=== PATIENT | male | born 1950 | race Caucasian/White ===

== ENCOUNTER 2021-10-10 15:48 | Emergency (ER) | payer OTHER, BC ==
[~2021-10-10] VITALS: Ht 193 cm; Wt 88.9 kg
[2021-10-10 15:48] VITALS: BP_SYST 156
--- NOTE | 2021-10-10 15:48 | NUR ---
BROUGHT IMMEDIATELY BACK TO BED #6 AND TRIAGED. REPORT GIVEN TO KALYANI
--- NOTE | 2021-10-10 15:50 | NUR ---
PER FAMILY, PT FEELING FATIGUED, IRRITABLE, JUST "OFF". PT DENIES CHEST PAIN OR DIZZINESS.
--- NOTE | 2021-10-10 15:52 | NUR ---
MD SING AT BEDSIDE FOR ASSESS.
--- NOTE | 2021-10-10 16:00 | NUR ---
EKG SENT TO DR. SMILEY
[2021-10-10 16:42] LABS: BASOPHILS % (AUTO) 0.5 % (0.0-2.0); EOSINOPHILS # (AUTO) 0.1 K/uL (0.0-0.4); EOSINOPHILS % (AUTO) 1.5 % (0.0-4.0); HEMATOCRIT 36.2 % (36-54); HEMOGLOBIN 12.1 g/dL (14.0-18.0); LYMPHOCYTES # (AUTO) 0.9 K/uL (1.0-5.5); LYMPHOCYTES % (AUTO) 14.6 % (20.5-51.5); MEAN CORPUSCULAR HEMOGLOBIN 30 pg (27-31); MEAN CORPUSCULAR HGB CONC 33 % (32-36); MEAN CORPUSCULAR VOLUME 90 fL (79.0-98.0); MONOCYTES # (AUTO) 0.2 K/uL (0.0-1.0); MONOCYTES % (AUTO) 3.8 % (1.7-9.3); NEUTROPHILS % (AUTO) 79.6 % (40.0-70.0); PLATELET COUNT (AUTO) 241 K/uL (130-430); RED BLOOD CELL COUNT(AUTO) 4.04 MIL/uL (4.2-6.2); RED CELL DISTRIBUTION WIDTH 14.4 % (9.0-15.0); WHITE BLOOD COUNT (AUTO) 6.3 K/uL (4.8-10.8)
[2021-10-10 16:55] LABS: ANION GAP 7 (5-15); CALCIUM 9.5 mg/dL (8.4-11.0); CHLORIDE 102 mmol/L (98-107); CREATININE 1.24 mg/dL (0.55-1.30); GLUCOSE 114 mg/dL (70-99); POTASSIUM 3.8 mmol/L (3.5-5.1); SODIUM SERUM 138 mmol/L (136-145); UREA NITROGEN, BLOOD 30 mg/dL (8-21)
[2021-10-10 17:12] LABS: ALANINE AMINOTRANSFERASE 36 U/L (12-78); ALBUMIN 3.6 g/dL (3.4-4.8); ASPARTATE AMINOTRANSFERASE 22 U/L (10-37); TOTAL BILIRUBIN 0.3 mg/dL (0.0-1.0)
[2021-10-10 17:15] LABS: GFR AFRICAN AMERICAN 74 mL/min (>90)
[2021-10-10 17:35] LABS: INR 1.1 (0.80-1.20); PROTHROMBIN TIME 11.2 SECS (9.5-12.5)
[2021-10-10] MEDS ORDERED: DOCU-144 PO (18:22)
[2021-10-10] MEDS ORDERED: TAMS-11 PO (18:22)
[2021-10-10] MEDS ORDERED: MYCO250C PO (18:22)
[2021-10-10] MEDS ORDERED: APIX5TAB PO (18:22)
[2021-10-10] MEDS ORDERED: HYDR-4038 PO (18:22)
[2021-10-10] MEDS ORDERED: PRED5TAB PO (18:22)
[2021-10-10] MEDS ORDERED: LOSA-419 PO (18:22)
[2021-10-10] MEDS ORDERED: AMLO5TAB92 PO (18:22)
[2021-10-10] MEDS ORDERED: ROSU40TA23 PO (18:22)
[2021-10-10] MEDS ORDERED: FAMO-132 PO (18:22)
[2021-10-10] MEDS ORDERED: TACR1CAP2 PO (18:22)
[2021-10-10] MEDS ORDERED: ESCI10TA PO (18:22)
[2021-10-10 19:11] VITALS: BP_SYST 147
--- NOTE | 2021-10-10 19:51 | NUR ---
Patient given written and verbal discharge instructions and verbalizes understanding. ER MD discussed with patient the results and treatment provided. Patient in stable condition. ID arm band removed. IV catheter removed intact and dressing applied, no active bleeding. Rx of N/A given. Patient educated on pain management and to follow up with PMD. Pain Scale . Opportunity for questions provided and answered. Medication side effect fact sheet provided.
== END 2021-10-10 19:50 | disposition home or self-care (01) ==
LOC: SED 15:48
DX: R53.1 Weakness (principal); E11.9 Type 2 diabetes mellitus without complications; I10 Essential (primary) hypertension; Z79.899 Other long term (current) drug therapy
CPT/HCPCS: 36415; 71045; 80053; 82550; 83735; 83880; 84484; 85025; 85379; 85610-TC; 85730-TC; 93005; 99285

== ENCOUNTER 2022-06-13 09:49 | Inpatient (IN) | payer OTHER, BC ==
[~2022-06-13] VITALS: Ht 193 cm; Wt 97.5 kg
[~2022-06-13 09:49] MED LIST: AMLO5TAB92 PO; APIX5TAB PO; DOCU-144 PO; ESCI10TA PO; FAMO-132 PO; HYDR-4038 PO; LOSA-419 PO; MYCO250C PO; PRED5TAB PO; ROSU40TA23 PO; TACR1CAP2 PO; TAMS-11 PO
--- NOTE | 2022-06-13 09:55 | NUR ---
Placed in room 08 . Placed on vehicle monitor technician, blood pressure machine and pulse oximeter. To gown for exam. Side rails up. Report given to SEDA HOOPER.
[2022-06-13 09:56] VITALS: BP_SYST 165
--- NOTE | 2022-06-13 10:07 | NUR ---
Pt bib MD Knowles from home. Chief complaint febrile with body aches, nausea and dry heaving. Pt has pain with non productive cough with chest pain. Pt states chest pain on inspiration
[2022-06-13 10:20] LABS: BASOPHILS % (AUTO) 0.2 % (0.0-2.0); EOSINOPHILS # (AUTO) 0.1 K/uL (0.0-0.4); EOSINOPHILS % (AUTO) 0.8 % (0.0-4.0); HEMATOCRIT 34.7 % (36-54); HEMOGLOBIN 11.6 g/dL (14.0-18.0); LYMPHOCYTES # (AUTO) 0.6 K/uL (1.0-5.5); LYMPHOCYTES % (AUTO) 7.4 % (20.5-51.5); MEAN CORPUSCULAR HEMOGLOBIN 31 pg (27-31); MEAN CORPUSCULAR HGB CONC 33 % (32-36); MEAN CORPUSCULAR VOLUME 92 fL (79.0-98.0); MONOCYTES # (AUTO) 0.8 K/uL (0.0-1.0); MONOCYTES % (AUTO) 9.7 % (1.7-9.3); NEUTROPHILS # (AUTO) 6.9 K/uL (1.8-7.7); NEUTROPHILS % (AUTO) 81.9 % (40.0-70.0); PLATELET COUNT (AUTO) 321 K/uL (130-430); RED BLOOD CELL COUNT(AUTO) 3.78 MIL/uL (4.2-6.2); RED CELL DISTRIBUTION WIDTH 14.4 % (9.0-15.0); WHITE BLOOD COUNT (AUTO) 8.4 K/uL (4.8-10.8)
[2022-06-13 10:40] LABS: ANION GAP 6 (5-15); CALCIUM 8.8 mg/dL (8.4-11.0); CHLORIDE 99 mmol/L (98-107); CREATININE 1.28 mg/dL (0.55-1.30); GLUCOSE 141 mg/dL (70-99); UREA NITROGEN, BLOOD 19 mg/dL (8-21)
[2022-06-13 10:43] LABS: GFR AFRICAN AMERICAN 71 mL/min (>90)
[2022-06-13 10:46] LABS: ALANINE AMINOTRANSFERASE 141 U/L (12-78); ALBUMIN 2.9 g/dL (3.4-4.8); AMYLASE 31 U/L (0-100); ASPARTATE AMINOTRANSFERASE 57 U/L (10-37); C-REACTIVE PROTEIN QUANT 20.1 mg/dL (0-0.5); LIPASE 52 U/L (73-393); TOTAL BILIRUBIN 0.7 mg/dL (0.0-1.0)
--- NOTE | 2022-06-13 10:51 | NUR ---
COVID AND FLU SWABBED AND SENT OT LAB
--- NOTE | 2022-06-13 11:05 | NUR ---
[facility]
[2022-06-13] MEDS ORDERED: ACETAMINOPHEN 500 MG TABLET ONE (11:30)
[2022-06-13] MEDS ORDERED: ACETAMINOPHEN 500 MG TABLET PO ONE (11:45)
--- NOTE | 2022-06-13 12:30 | NUR ---
Medicated per MD orders. IVF infusing with no s/s of infiltration at this time. Will cont to monitor
[2022-06-13] MEDS ORDERED: NACL 0.9% 1,000 ML IV ONE (13:00)
[2022-06-13] MEDS ORDERED: IPRATROPIUM/ALBUTEROL SULFATE 3 ML AMPUL.NEB (DUONEB) INH ONE (13:00)
--- NOTE | 2022-06-13 13:42 | NUR ---
PER DR. CALZADA, PT REQEUSTED DR. WORKMAN FOR ADMISSION. DR. CALZADA CALLED DR. WORKMAN ON HIS PERSONAL CELL PHONE FOR PEER TO PEER. PER FACESHEET: MEDICARE A&B PCP NOT ON STAFF
--- NOTE | 2022-06-13 13:46 | NUR ---
Admit bed requested Patient will be admitted to care of [ Sumit ]. Admitted to [Medsurg] unit. Diagnosis [ PNEUMONIA] Inpatient (Yes or No) [YES] Observation (Yes or No) [NO] Orientation concerns or request close to nursing station (Yes or No) [NO Covid Status [NEGATIVE] On vent or bipap [N/A] Isolation requirements [N/A] Needs a sitter [N/A] From Home (Yes or if No enter name of facility) [YES] Requires Dialysis (Yes or No) [NO] Med Rec Completed (Yes of No) [YES]
[2022-06-13] MEDS ORDERED: NOR10 PO (14:33)
[2022-06-13] MEDS ORDERED: INSU100I24 SQ (14:33)
[2022-06-13] MEDS ORDERED: INSU100V SUBCUT (14:33)
[2022-06-13] MEDS ORDERED: PROP325C5 PO (14:33)
[2022-06-13] MEDS ORDERED: DOCU-144 PO (14:33)
[2022-06-13] MEDS ORDERED: MULT-1089 PO (14:33)
[2022-06-13] MEDS ORDERED: LOSA25TA3 PO (14:33)
--- NOTE | 2022-06-13 14:39 | NUR ---
Medication reconciliation completed with information provided by patient . Any prior medication reconciliation on file was reviewed and corrected.
--- NOTE | 2022-06-13 14:45 | NUR ---
Patient will be admitted to care of [facility] . Admitted to Medsurg unit. Will go to room 119C . Belongings list completed. Complete and up to date summary report printed. SBAR report to be given at bedside with opportunity for questions.
[2022-06-13 14:55] VITALS: BP_SYST 139
--- NOTE | 2022-06-13 15:00 | NUR ---
Admit notes Recieved pt from ER awake, alert. Denies any pain or discomfort. Family at bedside. Oriented to call light use. Enc to call for help as needed.
[2022-06-13 15:24] VITALS: BP_SYST 139
--- NOTE | 2022-06-13 15:24 | NUR ---
MD Sumit Arana paged for MICHELET Restrepo.
--- NOTE | 2022-06-13 15:25 | NUR ---
PAGED- Paged DR. Arana Re: Med Rec and patients wants IVF change.
[2022-06-13] MEDS: D5/0.45 NS 1,000 ML IV SCH (15:32)
--- NOTE | 2022-06-13 16:23 | NUR ---
called- Sumit Barry called and stated that he will come and do the orders. Patient made aware.
--- NOTE | 2022-06-13 16:31 | NUR ---
CONSULTATION PAGED/CALLED Reason for Consultation: PNEUMONIA Person Who was Notified: OFFICE Consulting Physician: MARISSA HOUSTON Ordering Physician: DR WORKMAN
--- NOTE | 2022-06-13 17:30 | NUR ---
Notes- Patient check his sugar and administer his own insulin.
[2022-06-13] MEDS: MICAFUNGIN SODIUM 50 MG in NS 50 ML IV SCH (18:50)
[2022-06-13 18:59] LABS: C-REACTIVE PROTEIN QUANT 19.4 mg/dL (0-0.5)
[2022-06-13 19:44] LABS: BILIRUBIN,URINE NEGATIVE (NEGATIVE); BLOOD, URINE NEGATIVE (NEGATIVE); CLARITY/URINE CLEAR (CLEAR); COLOR,URINE YELLOW (YELLOW); GLUCOSE,URINE NEGATIVE (NEGATIVE); KETONES,URINE NEGATIVE (NEGATIVE); LEUKOCYTE ESTERASE ,URINE NEGATIVE (NEGATIVE); NITRITE, URINE NEGATIVE (NEGATIVE); PROTEIN URINE 2+ (NEGATIVE); UROBILINOGEN,URINE 0.2 (0.2-1.0)
[2022-06-13] MEDS ORDERED: amLODIPine BESYLATE 10 MG TABLET PO ONE (19:45)
[2022-06-13] MEDS ORDERED: INSULIN Lispro 100 UNITS/ML, 3 ML VIAL (humaLOG) SUBCUT ONE (19:45)
[2022-06-13 20:04] VITALS: BP_SYST 139
[2022-06-13 20:05] LABS: BACTERIA,URINE FEW /HPF (None Seen); COARSE GRANULAR CASTS,URINE 0-10 /LPF (None Seen); MUCUS,URINE None Seen /LPF (None Seen); RBC,URINE 0-3 /HPF (0-3); WBC,URINE 0-3 /HPF (0-3)
[2022-06-13] MEDS ORDERED: cefTRIAXone 1 GM in D5W 50 ML IV SCH (21:00)
[2022-06-13] MEDS ORDERED: ESCITALOPRAM OXALATE 10 MG TABLET PO SCH (21:00)
[2022-06-13] MEDS ORDERED: DOCUSATE SODIUM 100 MG CAPSULE PO SCH (21:00)
[2022-06-13] MEDS ORDERED: CEFEPIME 2 GM in D5W 100 ML IV SCH (21:00)
[2022-06-13] MEDS: CEFEPIME 2 GM in D5W 100 ML IV SCH (21:07)
[2022-06-13] MEDS: mycophenolate mofetiL 250 MG CAPSULE PO SCH (21:09)
[2022-06-13] MEDS: TAMSULOSIN HCL 0.4 MG CAP PO SCH (21:10)
[2022-06-13] MEDS: LOSARTAN POTASSIUM 25 MG TABLET PO SCH (21:10)
[2022-06-13] MEDS: TACROLIMUS ANHYDROUS 1 MG CAPSULE (PROGRAF) PO SCH (21:11)
[2022-06-13] MEDS: hydrALAZINE HCL 25 MG TABLET PO SCH (21:11)
--- NOTE | 2022-06-13 22:13 | NUR ---
Paged Dr. Arana s/w [place]
--- NOTE | 2022-06-13 23:31 | NUR ---
CONSULTATION PAGED/CALLED Reason for Consultation: RENAL [place] Person Who was Notified: DAVID Consulting Physician: LISE MEJIA Humanities Department Chair Specialty: Ordering Physician: GLORIA WORKMAN
--- NOTE | 2022-06-13 23:42 | NUR ---
MD CALLED: MD called and new orders were received for accu checks and insulin. Orders noted and carried out.
[2022-06-14 00:45] VITALS: BP_SYST 132
--- NOTE | 2022-06-14 06:34 | NUR ---
CLOSING NOTES: Patient is in bed resting no s/s of distress at this time. Patient is AA&OX4 able to make needs known with call light within reach, chest rise is even & unlabored on room air. Patient is stable at this time, all current shift needs have been met and safety measures are in place as per protocol. Will differ care to AM shift nurse for continuity of care.
[2022-06-14 08:00] VITALS: BP_SYST 102
[2022-06-14] MEDS ORDERED: cefTRIAXone 1 GM in D5W 50 ML IV SCH (09:00)
[2022-06-14] MEDS: DOCUSATE SODIUM 100 MG CAPSULE PO SCH ×2 (09:00→09:19)
[2022-06-14] MEDS ORDERED: INSULIN Lispro 100 UNITS/ML, 3 ML VIAL (humaLOG) SUBCUT SCH (09:00)
[2022-06-14] MEDS: TACROLIMUS ANHYDROUS 1 MG CAPSULE (PROGRAF) PO SCH ×2 (09:18→21:33)
[2022-06-14] MEDS: CEFEPIME 2 GM in D5W 100 ML IV SCH ×2 (09:18→22:46)
[2022-06-14] MEDS: MULTIVITAMINS TAB 1 TABLET PO SCH (09:19)
[2022-06-14] MEDS: FAMOTIDINE 20 MG TABLET PO SCH (09:20)
[2022-06-14] MEDS: CITALOPRAM HYDROBROMIDE 20 MG TABLET PO SCH (09:20)
[2022-06-14] MEDS: predniSONE 5 MG TABLET PO SCH (09:20)
[2022-06-14] MEDS: mycophenolate mofetiL 250 MG CAPSULE PO SCH ×2 (09:20→21:34)
[2022-06-14] MEDS: D5/0.45 NS 1,000 ML IV SCH (09:45)
[2022-06-14] MEDS: AZITHROMYCIN 250 MG in NS 250 ML IV SCH (10:25)
[2022-06-14 11:26] VITALS: BP_SYST 164
[2022-06-14] MEDS: LOSARTAN POTASSIUM 25 MG TABLET PO SCH ×2 (12:31→21:33)
[2022-06-14] MEDS: amLODIPine BESYLATE 10 MG TABLET PO SCH (12:32)
[2022-06-14] MEDS: hydrALAZINE HCL 25 MG TABLET PO SCH ×2 (12:32→21:34)
[2022-06-14 15:27] VITALS: BP_SYST 147
[2022-06-14] MEDS ORDERED: ACETAMINOPHEN 325 MG TABLET PO PRN (16:30)
[2022-06-14] MEDS: INSULIN LISPRO SLIDING SCALE 100 UNITS/ML, 3 ML VIAL (humaLOG) SUBCUT PRN ×2 (16:44→21:38)
[2022-06-14 17:33] VITALS: BP_SYST 147
[2022-06-14] MEDS: MICAFUNGIN SODIUM 50 MG in NS 50 ML IV SCH (18:03)
--- NOTE | 2022-06-14 18:30 | NUR ---
pt A/Ox4,vss,ambulatory well by self,O2 sat 94% on room air,respirates even and unlabored,pt demonstrated use for I/S,give IV antibiotic due,no adverse reactions noted needs attended,call light & personal items within pt reach,safety maintained. continue to monitor pt.
[2022-06-14 20:30] VITALS: BP_SYST 168
--- NOTE | 2022-06-14 20:30 | NUR ---
Opening notes Pt asleep, easily awakens, VSS, afebrile. O2 sat 96% on room air. Pt has occasional, non-productive cough. IV R. FA20G clear and patent. Call light within reach. Bed low, locked, siderails up x2. To monitor.
[2022-06-14] MEDS: TAMSULOSIN HCL 0.4 MG CAP PO SCH (21:34)
[2022-06-15] VITALS: BP_SYST 159
--- NOTE | 2022-06-15 | NUR ---
Rounds Pt had a shower. VSS. No s/s distress. Call light within reach. To monitor.
[2022-06-15] MEDS: D5/0.45 NS 1,000 ML IV SCH ×2 (05:45→20:32)
--- NOTE | 2022-06-15 06:25 | NUR ---
Closing notes Pt asleep, easily awakens. No s/s distress, no c/o pain. BS checked 102. IV R. FA20G clear and patent. Call light within reach. Bed low, locked, siderails up x2. Safety maintained. To endorse to AM nurse.
[2022-06-15 08:00] VITALS: BP_SYST 131
--- NOTE | 2022-06-15 08:00 | NUR ---
OPENING NOTES PATIENT IS AOX4. AMBULATORY. NO S OF DISTRESS NOTED. BREATHING IS EVEN AND LABORED, ON ROOM AIR. PATIENT HAS COUGH. INCENTIVE SPIROMETER WITHIN REACH ON BEDSIDE TABLE. PATIENT AWARE AND UNDERSTANDS THE IMPORTANCE TO USE INCENTIVE SPIROMETER. VITAL SIGNS OBTAINED, DOCUMENTED. PATIENT DENIES SOB. DENIES PAIN. IV APPEARS TO BE PATENT. NO SS OF INFILTRATION. NOTED. PATIENT IS EATING BREAKFAST. ALL SAFETY PRECAUTIONS IN PLACE AND CALL LIGHT WITHIN REACH.
[2022-06-15] MEDS: predniSONE 5 MG TABLET PO SCH (09:38)
[2022-06-15] MEDS: TACROLIMUS ANHYDROUS 1 MG CAPSULE (PROGRAF) PO SCH ×2 (09:38→20:30)
[2022-06-15] MEDS: FAMOTIDINE 20 MG TABLET PO SCH (09:38)
[2022-06-15] MEDS: LOSARTAN POTASSIUM 25 MG TABLET PO SCH ×2 (09:39→20:38)
[2022-06-15] MEDS: MULTIVITAMINS TAB 1 TABLET PO SCH (09:39)
[2022-06-15] MEDS: hydrALAZINE HCL 25 MG TABLET PO SCH ×2 (09:39→20:37)
[2022-06-15] MEDS: amLODIPine BESYLATE 10 MG TABLET PO SCH (09:39)
[2022-06-15] MEDS: DOCUSATE SODIUM 100 MG CAPSULE PO SCH (09:40)
[2022-06-15] MEDS: CITALOPRAM HYDROBROMIDE 20 MG TABLET PO SCH (09:40)
[2022-06-15] MEDS: mycophenolate mofetiL 250 MG CAPSULE PO SCH ×2 (09:40→20:30)
[2022-06-15] MEDS: CEFEPIME 2 GM in D5W 100 ML IV SCH ×2 (10:18→20:21)
[2022-06-15] MEDS: INSULIN LISPRO SLIDING SCALE 100 UNITS/ML, 3 ML VIAL (humaLOG) SUBCUT PRN ×3 (11:30→22:50)
[2022-06-15 11:50] VITALS: BP_SYST 143
[2022-06-15] MEDS: AZITHROMYCIN 250 MG in NS 250 ML IV SCH (11:50)
--- NOTE | 2022-06-15 12:00 | NUR ---
NOTES PATIENT SITTING AT EDGE OF BED, BEDSIDE TABLE IN FRONT, EATING LUNCH. STABLE. NO CHANGE IN ASSESSMENT. SAFETY PRECAUTIONS IN PLACE AND ALL LIGHT WITHIN REACH.
--- NOTE | 2022-06-15 16:00 | NUR ---
NOTES PATIENT APPEARS TO BE SLEEPING, BREATHING IS EVEN AND NONLABORED, ON ROOM AIR. NO FACIAL GRIMACE NOTED. NO SOB NOTED. SAFETY PRECAUTIONS IN PLACE AND CALL LIGHT WITHIN REACH.
[2022-06-15] MEDS: MICAFUNGIN SODIUM 50 MG in NS 50 ML IV SCH (18:11)
[2022-06-15 18:31] VITALS: BP_SYST 162
--- NOTE | 2022-06-15 18:47 | NUR ---
Closing notes Patient is sitting at edge of the bed, eating dinner. Patient is stable. Denies pain. No SOB noted. Breathing is even and nonlabored, on room air. IV patent. IV antibiotics running. All needs met. All safety precautions in place and call light within reach.
[2022-06-15 19:35] VITALS: BP_SYST 156
[2022-06-15] MEDS: TAMSULOSIN HCL 0.4 MG CAP PO SCH (20:23)
[2022-06-15] MEDS: PROMETHAZINE-DM 6.25 MG-15 MG/5 ML UDC PO PRN (20:40)
--- NOTE | 2022-06-15 20:45 | NUR ---
NEW IV PLACEMENT PATIENT'S IV IS NOTED TO BE INFILTRATED, OLD IV IS REMOVED, TIP INTACT, NO SIGNS OF ACTIVE BLEED. NEW IV IS PLACED ON LEFT FOREARM #22 GAUGE. 10 MLS NS FLUSHED WITH NO RESISTANCE.
[2022-06-16] VITALS (7 sets, daily range): BP systolic 152–165
--- NOTE | 2022-06-16 06:45 | NUR ---
CLOSING NOTE PATIENT VERBALIZES HE FEELS "MUCH BETTER" HE DID NOT HAVE ANY COUGHS OR CONGESTION NOTED DURING THE NIGHT. HE REMAINS STABLE.
--- NOTE | 2022-06-16 08:00 | NUR ---
INITIAL NOTE: Received Patient lying in bed, awake alert, oriented x 4. Patient able to express needs verbally. States she currently has no concerns. No c/o pain. No SOB. Breathing even & unlabored. Lungs clear, all lobes. No edema noted. Surgical dressing to left leg intact. 20 gauge IV to left AC intact with no signs of infiltration. D5 1/2 NS running. Vitals WNL. Bed in low, locked position. Alarm active. Call light & personal items within reach. Addendum: 06/16/22 at 1700 by Barbara Galo LVN CHARTED IN INCORRECT FILE
--- NOTE | 2022-06-16 08:00 | NUR ---
INITIAL NOTE: Received Patient lying in bed, eyes closed appears to be sleeping. Once awakened, Patient is oriented x 4 with a pleasant demeanor. Patient verbally makes needs known. States he currently has no concerns. Patient denies pain. States chest congestion has stopped. Breathing even & unlabored. Lungs clear, all lobes. No SOB. No edema noted. 20 gauge IV to right AC intact with no signs of infiltration, flushes well. Vitals WNL. Bed in low, locked position. Call light & personal items within reach.
[2022-06-16] MEDS: mycophenolate mofetiL 250 MG CAPSULE PO SCH ×2 (10:16→20:56)
[2022-06-16] MEDS: amLODIPine BESYLATE 10 MG TABLET PO SCH (10:17)
[2022-06-16] MEDS: FAMOTIDINE 20 MG TABLET PO SCH (10:17)
[2022-06-16] MEDS: MULTIVITAMINS TAB 1 TABLET PO SCH (10:17)
[2022-06-16] MEDS: CITALOPRAM HYDROBROMIDE 20 MG TABLET PO SCH (10:18)
[2022-06-16] MEDS: DOCUSATE SODIUM 100 MG CAPSULE PO SCH (10:18)
[2022-06-16] MEDS: CEFEPIME 2 GM in D5W 100 ML IV SCH ×2 (10:18→20:55)
[2022-06-16] MEDS: hydrALAZINE HCL 25 MG TABLET PO SCH ×2 (10:18→20:56)
[2022-06-16] MEDS: TACROLIMUS ANHYDROUS 1 MG CAPSULE (PROGRAF) PO SCH ×2 (10:18→20:58)
[2022-06-16] MEDS: predniSONE 5 MG TABLET PO SCH (10:18)
[2022-06-16] MEDS: PROMETHAZINE-DM 6.25 MG-15 MG/5 ML UDC PO PRN (10:19)
[2022-06-16] MEDS: LOSARTAN POTASSIUM 25 MG TABLET PO SCH ×2 (10:19→20:57)
[2022-06-16] MEDS: INSULIN GLARGINE 100 UNITS/ML, 10 ML VIAL SUBCUT SCH (10:29)
[2022-06-16] MEDS: AZITHROMYCIN 250 MG in NS 250 ML IV SCH (10:59)
--- NOTE | 2022-06-16 11:30 | NUR ---
Patient called using call light stating that her IV is "leaking". Upon visualization, IV showed signs of obvious infiltration including redness & edema to site, Left AC. IV fluid infusion was immediately stopped & IV catheter was removed. Patient was offered a compress but refused. Attempted new IV in 2 locations but unsuccessful. Addendum: 06/16/22 at 1418 by Barbara Galo LVN CHARTED IN WRONG LISTING
[2022-06-16] MEDS: INSULIN LISPRO SLIDING SCALE 100 UNITS/ML, 3 ML VIAL (humaLOG) SUBCUT PRN ×3 (12:28→21:31)
--- NOTE | 2022-06-16 13:45 | NUR ---
After several unsuccessful attempts, a new IV was started for patient. 22 gauge was placed to the left wrist. Flushes well with good blood return. IV fluid D5 1/2 NS running at 100 mL/hour was hung. No c/o pain to the site. Dressing to infiltrated site at left AC was removed. Patient was previously offered a compress and refused. Redness, pain and edema has decreased. Addendum: 06/16/22 at 1419 by Barbara Galo LVN CHARTED IN WRONG LISTING
[2022-06-16] MEDS ORDERED: VANCOMYCIN HCL 1 GM/NS PREMIX 250 ML IV ONE (15:15)
[2022-06-16 16:17] LABS: BASOPHILS % (AUTO) 0.3 % (0.0-2.0); EOSINOPHILS # (AUTO) 0.1 K/uL (0.0-0.4); EOSINOPHILS % (AUTO) 1.5 % (0.0-4.0); HEMATOCRIT 32.9 % (36-54); HEMOGLOBIN 11.2 g/dL (14.0-18.0); LYMPHOCYTES # (AUTO) 0.7 K/uL (1.0-5.5); LYMPHOCYTES % (AUTO) 11.6 % (20.5-51.5); MEAN CORPUSCULAR HEMOGLOBIN 31 pg (27-31); MEAN CORPUSCULAR HGB CONC 34 % (32-36); MEAN CORPUSCULAR VOLUME 92 fL (79.0-98.0); MONOCYTES # (AUTO) 0.6 K/uL (0.0-1.0); MONOCYTES % (AUTO) 9.7 % (1.7-9.3); NEUTROPHILS # (AUTO) 4.7 K/uL (1.8-7.7); NEUTROPHILS % (AUTO) 76.9 % (40.0-70.0); PLATELET COUNT (AUTO) 379 K/uL (130-430); RED BLOOD CELL COUNT(AUTO) 3.59 MIL/uL (4.2-6.2); RED CELL DISTRIBUTION WIDTH 14.1 % (9.0-15.0); WHITE BLOOD COUNT (AUTO) 6.1 K/uL (4.8-10.8)
[2022-06-16 16:20] LABS: ERYTHROCYTE SEDIMENTATION RATE 107 MM/HR (0-15)
--- NOTE | 2022-06-16 18:30 | NUR ---
CLOSING NOTE: Patient resting in bed in position of most comfort. Denies pain. Kept clean and dry. Bed in low, locked position. Call light and personal items within reach.
--- NOTE | 2022-06-16 19:15 | NUR ---
change of shift.pt.presents quiescent affect;calm,resting.no c/o pain,nausea.pt.capable to ambulate unassisted. o2-sat%=98@room air.general status stable;respiratory status stable;unlabored.call light/telephone w/in access of the pt.
--- NOTE | 2022-06-16 20:30 | NUR ---
blood glucose assessed value:294mg/dl.
[2022-06-16] MEDS: MICAFUNGIN SODIUM 50 MG in NS 50 ML IV SCH (20:55)
[2022-06-16] MEDS: TAMSULOSIN HCL 0.4 MG CAP PO SCH (20:57)
--- NOTE | 2022-06-16 21:00 | NUR ---
2100p medications administered.pt.capable to ingest the po medications w/out difficulty.insulin;humalo-u administered per sliding scale.no c/o pain,nausea,no requests posited@this hour.call light/telephone placed w/in access of the pt.
[2022-06-16] MEDS: D5/0.45 NS 1,000 ML IV SCH (21:45)
--- NOTE | 2022-06-16 22:00 | NUR ---
pt.assessed.no c/o pain,nausea.no requests posited@this hour.02-sat%=98%.iv access intact;patent.pt.capable to reposition self.call light/telephone w/in access of the pt.
--- NOTE | 2022-06-16 22:00 | NUR ---
pt.assessed.pt.quiescent.02-fri%=98%.iv access intact;patent.no c/o pain,nausea.no requests posited@this hour.pt.capable to reposition self.call light/telephone w/in access of the pt.
[2022-06-17] VITALS: BP_SYST 140
--- NOTE | 2022-06-17 | NUR ---
pt.assessed.v/s assessed values wnl.o2-sat%=98%.no c/o pain,nausea.no requests posited@this hour.iv access intact;patent.pt.capable to reposition self.call light/telephone w/in access of the pt.
--- NOTE | 2022-06-17 02:00 | NUR ---
pt.assessed.pt.quiescent;somnolent.per flacc pain mgx pt.absent facial grimaces/body posturing.pt.capable to reposition self. iv access intact;patent.call light/telephone w/in access of the pt.
--- NOTE | 2022-06-17 04:00 | NUR ---
pt.assessed.pt.quiescent;somnolent.per flacc pain mgx pt.absent facial grimaces/body posturing.pt.capable to reposition self. iv access intact;patent.call light/telephone w/in access of the pt.
[2022-06-17 06:05] LABS: CALCIUM 8.7 mg/dL (8.4-11.0); CREATININE 1.27 mg/dL (0.55-1.30)
--- NOTE | 2022-06-17 06:13 | NUR ---
pt.assessed.pt.quiescent.no c/o pain,nausea.blood glucose assessed value;128mg/dl.no requests posited@this hour. pt.capable to reposition self.call light/telephone placed w/in access of the pt.
[2022-06-17 07:37] LABS: EOSINOPHILS # (AUTO) 0.2 K/uL (0.0-0.4); EOSINOPHILS % (AUTO) 2.4 % (0.0-4.0); HEMOGLOBIN 11.2 g/dL (14.0-18.0); LYMPHOCYTES # (AUTO) 1.4 K/uL (1.0-5.5); LYMPHOCYTES % (AUTO) 22.5 % (20.5-51.5); MEAN CORPUSCULAR HEMOGLOBIN 30 pg (27-31); MEAN CORPUSCULAR HGB CONC 33 % (32-36); MEAN CORPUSCULAR VOLUME 91 fL (79.0-98.0); MONOCYTES # (AUTO) 0.5 K/uL (0.0-1.0); MONOCYTES % (AUTO) 7.8 % (1.7-9.3); PLATELET COUNT (AUTO) 405 K/uL (130-430); RED BLOOD CELL COUNT(AUTO) 3.73 MIL/uL (4.2-6.2); RED CELL DISTRIBUTION WIDTH 14.5 % (9.0-15.0); WHITE BLOOD COUNT (AUTO) 6.4 K/uL (4.8-10.8)
[2022-06-17 08:00] VITALS: BP_SYST 136
[2022-06-17 08:00] LABS: BASOPHILS % (AUTO) 0.2 % (0.0-2.0); NEUTROPHILS # (AUTO) 4.3 K/uL (1.8-7.7); NEUTROPHILS % (AUTO) 67.1 % (40.0-70.0)
--- NOTE | 2022-06-17 08:00 | NUR ---
INITIAL NOTE: Received Patient lying in bed asleep. When awakened, oriented x 4. Patient denies pain at this time. Breathing even & unlabored. No c/o SOB. Vitals WNL. Bed is in low, locked position. Call light & personal items within reach.
[2022-06-17] MEDS: AZITHROMYCIN 250 MG in NS 250 ML IV SCH (09:00)
[2022-06-17] MEDS: MULTIVITAMINS TAB 1 TABLET PO SCH (09:07)
[2022-06-17] MEDS: hydrALAZINE HCL 25 MG TABLET PO SCH ×2 (09:07→21:42)
[2022-06-17] MEDS: DOCUSATE SODIUM 100 MG CAPSULE PO SCH (09:07)
[2022-06-17] MEDS: CITALOPRAM HYDROBROMIDE 20 MG TABLET PO SCH (09:07)
[2022-06-17] MEDS: mycophenolate mofetiL 250 MG CAPSULE PO SCH ×2 (09:07→21:45)
[2022-06-17] MEDS: LOSARTAN POTASSIUM 25 MG TABLET PO SCH ×2 (09:07→21:44)
[2022-06-17] MEDS: FAMOTIDINE 20 MG TABLET PO SCH (09:08)
[2022-06-17] MEDS: predniSONE 5 MG TABLET PO SCH (09:08)
[2022-06-17] MEDS: amLODIPine BESYLATE 10 MG TABLET PO SCH (09:08)
[2022-06-17] MEDS: TACROLIMUS ANHYDROUS 1 MG CAPSULE (PROGRAF) PO SCH ×2 (09:08→21:45)
[2022-06-17] MEDS: INSULIN GLARGINE 100 UNITS/ML, 10 ML VIAL SUBCUT SCH (09:19)
[2022-06-17] MEDS: CEFEPIME 2 GM in D5W 100 ML IV SCH ×2 (10:32→21:40)
--- NOTE | 2022-06-17 10:45 | NUR ---
new iv inserted right lower FA 20g first attempt. positive blood return, flushes well. tolerated well. left FA iv removed due to phlebitis; pink, tender, swollen. pleasant, cooperative, no distress. call light in reach. SEDA Jimenez aware. daughter visited bedside.
[2022-06-17 11:36] VITALS: BP_SYST 129
[2022-06-17] MEDS: INSULIN LISPRO SLIDING SCALE 100 UNITS/ML, 3 ML VIAL (humaLOG) SUBCUT PRN ×3 (12:14→21:57)
[2022-06-17 12:26] VITALS: BP_SYST 129
[2022-06-17 15:55] VITALS: BP_SYST 163
[2022-06-17] MEDS: D5/0.45 NS 1,000 ML IV SCH (17:45)
[2022-06-17] MEDS: MICAFUNGIN SODIUM 50 MG in NS 50 ML IV SCH (17:52)
[2022-06-17 18:06] LABS: MYCOPLASMA PNEUMONIAE IgM <770 U/mL (0-769)
--- NOTE | 2022-06-17 18:30 | NUR ---
CLOSING NOTE: Patient currently resting in bed, in position of comfort. No signs of acute distress noted. Denies pain. No SOB. No signs of acute distress noted. Bed in low, locked position. Call light and personal items within reach.
[2022-06-17 20:00] VITALS: BP_SYST 140
[2022-06-17] MEDS: TAMSULOSIN HCL 0.4 MG CAP PO SCH (21:40)
[2022-06-18 00:28] VITALS: BP_SYST 174
[2022-06-18] MEDS ORDERED: hydrALAZINE HCL 25 MG TABLET PO PRN (00:30)
--- NOTE | 2022-06-18 04:09 | NUR ---
SHIFT NOTE: Patient was received during change of shift. Patient is AA&Ox4 able to make needs known, chest rise is even and unlabored on RA. Patient is pleasant denies any pain or distress at the time and has call light within reach. Safety measures are in place as per protocol. Care was resumed at this time. 2200: Patient has been assessed as indicated and has received all evening shift medications including PRN insulin per sliding scale. Patient denies pain is watching television at this time. Will continue to monitor. 0000: Patient BP was noted to be elevated at 175/81 or above. BP was retaken multiple times and SBP was noted >[address] Arana was paged. 0100: Spoke with Dr. Arana about patient elevated BP and received a new order for a PRN medication for SBP >160. Orders noted and carried out. 0300: Patient is in bed resting no s/s of distress noted at this time and call light is within reach. BP was assessed for follow up and noted to be 160/75. Will continue to monitor.
[2022-06-18 06:18] LABS: BASOPHILS # (AUTO) 0.1 K/uL (0.0-0.2); BASOPHILS % (AUTO) 0.8 % (0.0-2.0); EOSINOPHILS # (AUTO) 0.2 K/uL (0.0-0.4); EOSINOPHILS % (AUTO) 3.8 % (0.0-4.0); HEMATOCRIT 33.6 % (36-54); HEMOGLOBIN 11.4 g/dL (14.0-18.0); LYMPHOCYTES # (AUTO) 1.3 K/uL (1.0-5.5); LYMPHOCYTES % (AUTO) 20.3 % (20.5-51.5); MEAN CORPUSCULAR HEMOGLOBIN 31 pg (27-31); MEAN CORPUSCULAR HGB CONC 34 % (32-36); MEAN CORPUSCULAR VOLUME 91 fL (79.0-98.0); MONOCYTES # (AUTO) 0.5 K/uL (0.0-1.0); MONOCYTES % (AUTO) 7.8 % (1.7-9.3); NEUTROPHILS # (AUTO) 4.3 K/uL (1.8-7.7); NEUTROPHILS % (AUTO) 67.3 % (40.0-70.0); PLATELET COUNT (AUTO) 412 K/uL (130-430); RED BLOOD CELL COUNT(AUTO) 3.71 MIL/uL (4.2-6.2); WHITE BLOOD COUNT (AUTO) 6.3 K/uL (4.8-10.8)
[2022-06-18 06:43] LABS: CALCIUM 8.8 mg/dL (8.4-11.0); CREATININE 1.16 mg/dL (0.55-1.30)
[2022-06-18 07:59] LABS: ERYTHROCYTE SEDIMENTATION RATE 73 MM/HR (0-15)
[2022-06-18 08:30] VITALS: BP_SYST 158
[2022-06-18] MEDS: predniSONE 5 MG TABLET PO SCH (09:56)
[2022-06-18] MEDS: CITALOPRAM HYDROBROMIDE 20 MG TABLET PO SCH (09:56)
[2022-06-18] MEDS: FAMOTIDINE 20 MG TABLET PO SCH (09:56)
[2022-06-18] MEDS: DOCUSATE SODIUM 100 MG CAPSULE PO SCH (09:56)
[2022-06-18] MEDS: MULTIVITAMINS TAB 1 TABLET PO SCH (09:56)
[2022-06-18] MEDS: amLODIPine BESYLATE 10 MG TABLET PO SCH (09:57)
[2022-06-18] MEDS: TACROLIMUS ANHYDROUS 1 MG CAPSULE (PROGRAF) PO SCH (09:58)
[2022-06-18] MEDS: hydrALAZINE HCL 25 MG TABLET PO SCH (09:58)
[2022-06-18] MEDS: CEFEPIME 2 GM in D5W 100 ML IV SCH (10:05)
[2022-06-18] MEDS: AZITHROMYCIN 250 MG in NS 250 ML IV SCH (10:06)
[2022-06-18] MEDS: LOSARTAN POTASSIUM 25 MG TABLET PO SCH (10:07)
[2022-06-18] MEDS: INSULIN GLARGINE 100 UNITS/ML, 10 ML VIAL SUBCUT SCH (10:57)
[2022-06-18] MEDS: mycophenolate mofetiL 250 MG CAPSULE PO SCH (11:27)
[2022-06-18 11:33] VITALS: BP_SYST 153
[2022-06-18] MEDS: INSULIN LISPRO SLIDING SCALE 100 UNITS/ML, 3 ML VIAL (humaLOG) SUBCUT PRN (11:55)
[2022-06-18 15:36] VITALS: BP_SYST 133
[2022-06-18 16:09] VITALS: BP_SYST 158
[2022-06-18 16:29] LABS: BILIRUBIN,URINE NEGATIVE (NEGATIVE); BLOOD, URINE NEGATIVE (NEGATIVE); CLARITY/URINE CLEAR (CLEAR); COLOR,URINE YELLOW (YELLOW); GLUCOSE,URINE NEGATIVE (NEGATIVE); KETONES,URINE NEGATIVE (NEGATIVE); LEUKOCYTE ESTERASE ,URINE NEGATIVE (NEGATIVE); NITRITE, URINE NEGATIVE (NEGATIVE); PH,URINE 6.5 (5.0-8.0); PROTEIN URINE 2+ (NEGATIVE); UROBILINOGEN,URINE 0.2 (0.2-1.0)
[2022-06-18 17:02] LABS: BACTERIA,URINE FEW /HPF (None Seen); COARSE GRANULAR CASTS,URINE 0-10 /LPF (None Seen); FINE GRANULAR CASTS,URINE 0-10 /LPF (None Seen); MUCUS,URINE None Seen /LPF (None Seen); RBC,URINE 0-3 /HPF (0-3); WBC,URINE 0-3 /HPF (0-3)
[2022-06-18] MEDS ORDERED: hydrALAZINE HCL 25 MG TABLET PO SCH (21:00)
[2022-06-19] MEDS ORDERED: amLODIPine BESYLATE 5 MG TABLET PO SCH (09:00)
--- NOTE | 2022-07-02 09:59 | NUR ---
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 Dr. Knowles who sounded upbeat. stated he completed his oral antibiotics, has not SOB, no fever. stated he is just trying to get his strength and energy back. Dr Daviesstated he had an apt. with his PCP, Dr. Gaston at [facility] and has an apt. with Dr. Rooney on Friday. did not have any questions or concerns.
== END 2022-06-18 17:35 | disposition home or self-care (01) | DRG 194 ==
LOC: SED 09:49 → SMU 13:42
PROVIDERS: ADMIT Specialist; ATTEND Specialist
DX: J18.9 Pneumonia, unspecified organism (principal); D84.9 Immunodeficiency, unspecified; Z94.0 Kidney transplant status; R78.81 Bacteremia; E44.1 Mild protein-calorie malnutrition; I10 Essential (primary) hypertension; E11.9 Type 2 diabetes mellitus without complications; Z20.822 Contact with and (suspected) exposure to COVID-19; B95.8 Unspecified staphylococcus as the cause of diseases classified elsewhere; E78.5 Hyperlipidemia, unspecified; F32.A Depression, unspecified; Z68.26 Body mass index [BMI] 26.0-26.9, adult
CPT/HCPCS: 36415; 71045; 76376; 76770; 80048; 80053; 81000; 82150; 83037; 83690; 83880; 84484; 85025; 85651-TC; 86140; 86738; 87040; 87070-TC; 87081; 87186-TC; 87205-TC; 87305; 87497; 93005; 94010; 94640; 94760; 96365; 96367; 99285; J0456; J0692; J0696; J1815; J1956; J3370; J7030; J7050; J7060; J7507; J7512; J7517

== ENCOUNTER 2022-10-10 14:03 | Inpatient (IN) | payer OTHER, BC ==
[~2022-10-10] VITALS: Ht 190.5 cm; Wt 95.3 kg
[~2022-10-10 14:03] MED LIST changes: -AMLO5TAB92 PO; +INSU100I24 SQ; +INSU100V SUBCUT; +LOSA-412 PO; -LOSA-419 PO; +MULT-1089 PO; +NOR10 PO; +PROP325C5 PO
[2022-10-10 14:11] VITALS: BP_SYST 160; PULSE 65; RESP 19; TEMP 98; O2SAT 92
[2022-10-10] MEDS ORDERED: NACL 0.9% 1,000 ML IV ONE (14:45)
[2022-10-10 15:21] LABS: BASOPHILS % (AUTO) 0.3 % (0.0-2.0); EOSINOPHILS # (AUTO) 0.1 K/uL (0.0-0.4); EOSINOPHILS % (AUTO) 1.1 % (0.0-4.0); HEMATOCRIT 38.8 % (36-54); HEMOGLOBIN 12.5 g/dL (14.0-18.0); LYMPHOCYTES # (AUTO) 0.5 K/uL (1.0-5.5); LYMPHOCYTES % (AUTO) 7.2 % (20.5-51.5); MEAN CORPUSCULAR HEMOGLOBIN 30 pg (27-31); MEAN CORPUSCULAR HGB CONC 32 % (32-36); MEAN CORPUSCULAR VOLUME 93 fL (79.0-98.0); MONOCYTES # (AUTO) 0.6 K/uL (0.0-1.0); MONOCYTES % (AUTO) 7.9 % (1.7-9.3); NEUTROPHILS # (AUTO) 5.9 K/uL (1.8-7.7); NEUTROPHILS % (AUTO) 83.5 % (40.0-70.0); PLATELET COUNT (AUTO) 270 K/uL (130-430); RED BLOOD CELL COUNT(AUTO) 4.17 MIL/uL (4.2-6.2); RED CELL DISTRIBUTION WIDTH 14.6 % (9.0-15.0); WHITE BLOOD COUNT (AUTO) 7.1 K/uL (4.8-10.8)
[2022-10-10 15:28] LABS: ERYTHROCYTE SEDIMENTATION RATE 65 MM/HR (0-15)
[2022-10-10 15:34] LABS: ANION GAP 6 (5-15); CALCIUM 8.9 mg/dL (8.4-11.0); CARBON DIOXIDE 29 mmol/L (23-29); CHLORIDE 101 mmol/L (98-107); CREATININE 1.14 mg/dL (0.55-1.30); GLUCOSE 232 mg/dL (74-106); POTASSIUM 3.8 mmol/L (3.5-5.1); SODIUM SERUM 136 mmol/L (136-145); UREA NITROGEN, BLOOD 15 mg/dL (8-21)
[2022-10-10 15:36] LABS: GFR AFRICAN AMERICAN 82 mL/min (>90); GFR NON AFRICAN-AMERICAN 67 mL/min (>90)
[2022-10-10 15:37] LABS: INR 1.1 (0.80-1.20); PROTHROMBIN TIME 11.8 SECS (9.5-12.5)
[2022-10-10 15:56] LABS: INFLUENZA TYPE A negative (NEGATIVE); INFLUENZA TYPE B NEGATIVE (NEGATIVE)
[2022-10-10 16:08] LABS: ALANINE AMINOTRANSFERASE 41 U/L (12-78); ALBUMIN 3.2 g/dL (3.4-4.8); ASPARTATE AMINOTRANSFERASE 31 U/L (10-37); TOTAL BILIRUBIN 0.6 mg/dL (0.0-1.0); TOTAL PROTEIN, SERUM 7.9 g/dL (6.4-8.3)
[2022-10-10] MEDS ORDERED: AZITHROMYCIN 500 MG in NS 250 ML IV ONE (16:15)
[2022-10-10] MEDS ORDERED: CEFEPIME 2 GM in D5W 100 ML IV ONE (16:15)
[2022-10-10] MEDS ORDERED: AZITHROMYCIN 500 MG/VIAL (ZITHROMAX) IV ONE (16:26)
[2022-10-10] MEDS ORDERED: ACETAMINOPHEN 325 MG TABLET PO ONE (17:15)
[2022-10-10] MEDS ORDERED: NALOXONE HCL 0.4 MG/ML AMP (NARCAN) IVP PRN ×2 (18:15)
[2022-10-10] MEDS ORDERED: HYDROcodone/ACETAMIN 10-325 MG TAB PO PRN (18:15)
[2022-10-10] MEDS ORDERED: ONDANSETRON HCL 4 MG/2 ML VIAL IVP PRN (18:15)
[2022-10-10] MEDS ORDERED: LORazepam 2 MG/ML VIAL IVP PRN (18:15)
[2022-10-10] MEDS ORDERED: HYDROcodone/ACETAMIN 5-325 MG TAB (NORCO/ VICODIN) PO PRN (18:15)
[2022-10-10] MEDS ORDERED: ACETAMINOPHEN 325 MG TABLET PO PRN ×2 (18:15→18:30)
[2022-10-10 18:19] LABS: CLARITY/URINE CLEAR (CLEAR); COLOR,URINE YELLOW (YELLOW); PROTEIN URINE 2+ (NEGATIVE)
[2022-10-10 18:20] LABS: BILIRUBIN,URINE NEGATIVE (NEGATIVE); BLOOD, URINE NEGATIVE (NEGATIVE); GLUCOSE,URINE NEGATIVE (NEGATIVE); KETONES,URINE NEGATIVE (NEGATIVE); LEUKOCYTE ESTERASE ,URINE NEGATIVE (NEGATIVE); NITRITE, URINE NEGATIVE (NEGATIVE); UROBILINOGEN,URINE 0.2 (0.2-1.0)
[2022-10-10 18:23] LABS: BACTERIA,URINE None Seen /HPF (None Seen); MUCUS,URINE None Seen /LPF (None Seen); WBC,URINE 0-3 /HPF (0-3)
[2022-10-10 18:26] VITALS: BP_SYST 171; PULSE 74; RESP 18; TEMP 100.2; O2SAT 92
[2022-10-10] MEDS: INSULIN REGULAR, HUMAN 100 UNITS/ML, 3 ML VIAL (humuLIN R) SUBCUT PRN ×2 (18:57→21:23)
[2022-10-10 19:00] VITALS: BP_SYST 185; PULSE 86; RESP 18; TEMP 100.1; O2SAT 97
[2022-10-10] MEDS: ALBUTEROL SULFATE 0.083% 2.5 MG/3 ML VIAL.NEB INH SCH ×2 (20:26→23:32)
[2022-10-10] MEDS: IPRATROPIUM BROM 0.5 MG/2.5 ML VIAL.NEB (ATROVENT) INH SCH ×2 (20:26→23:32)
[2022-10-10 20:44] VITALS: O2SAT 98
[2022-10-10] MEDS ORDERED: ESCITALOPRAM OXALATE 10 MG TABLET PO SCH (21:00)
[2022-10-10] MEDS ORDERED: NON-FORMULARY MEDICATION (Rosuvastatin Calcium 40 MG) PO SCH (21:00)
[2022-10-10] MEDS ORDERED: hydrALAZINE HCL 25 MG TABLET PO PRN (21:00)
[2022-10-10] MEDS ORDERED: LOSARTAN POTASSIUM 25 MG TABLET PO SCH (21:00)
[2022-10-10] MEDS ORDERED: INSULIN DEGLUDEC 50 UNIT SQ SCH (21:00)
[2022-10-10] MEDS ORDERED: PROPAFENONE HCL 325 MG PO SCH (21:00)
[2022-10-10] MEDS: CITALOPRAM HYDROBROMIDE 20 MG TABLET PO SCH (21:10)
[2022-10-10] MEDS: TAMSULOSIN HCL 0.4 MG CAP PO SCH (21:11)
[2022-10-10] MEDS: ATORVASTATIN 20 MG TABLET PO SCH (21:11)
[2022-10-10] MEDS: hydrALAZINE HCL 25 MG TABLET PO SCH (21:12)
[2022-10-10] MEDS: DOCUSATE SODIUM 100 MG CAPSULE PO SCH (21:13)
[2022-10-10] MEDS: TACROLIMUS ANHYDROUS 1 MG CAPSULE (PROGRAF) PO SCH (21:13)
[2022-10-10] MEDS: mycophenolate mofetiL 250 MG CAPSULE PO SCH (21:13)
[2022-10-10] MEDS: PROPAFENONE 325 MG PO SCH (21:14)
[2022-10-10] MEDS: APIXABAN 2.5 MG TABLET PO SCH (21:17)
[2022-10-10] MEDS: NORMAL SALINE 5 ML DISP.SYRIN IVF SCH (21:22)
[2022-10-10] MEDS: INSULIN GLARGINE 100 UNITS/ML, 10 ML VIAL SUBCUT SCH (21:23)
[2022-10-10 23:33] VITALS: O2SAT 97
[2022-10-11] VITALS (10 sets, daily range): BP systolic 136–195; PULSE 70–89; RESP 16–20; TEMP 97.5–99.7; O2SAT 93–98
[2022-10-11] MEDS: ALBUTEROL SULFATE 0.083% 2.5 MG/3 ML VIAL.NEB INH SCH ×6 (03:16→22:12)
[2022-10-11] MEDS: IPRATROPIUM BROM 0.5 MG/2.5 ML VIAL.NEB (ATROVENT) INH SCH ×6 (03:16→22:14)
[2022-10-11 05:28] LABS: BASOPHILS % (AUTO) 0.2 % (0.0-2.0); EOSINOPHILS % (AUTO) 0.3 % (0.0-4.0); HEMATOCRIT 36.9 % (36-54); HEMOGLOBIN 12.1 g/dL (14.0-18.0); LYMPHOCYTES % (AUTO) 12.8 % (20.5-51.5); MEAN CORPUSCULAR HEMOGLOBIN 30 pg (27-31); MEAN CORPUSCULAR HGB CONC 33 % (32-36); MEAN CORPUSCULAR VOLUME 92 fL (79.0-98.0); MONOCYTES # (AUTO) 0.6 K/uL (0.0-1.0); MONOCYTES % (AUTO) 8.3 % (1.7-9.3); NEUTROPHILS % (AUTO) 78.4 % (40.0-70.0); PLATELET COUNT (AUTO) 275 K/uL (130-430); RED BLOOD CELL COUNT(AUTO) 3.99 MIL/uL (4.2-6.2); RED CELL DISTRIBUTION WIDTH 14.3 % (9.0-15.0); WHITE BLOOD COUNT (AUTO) 7.7 K/uL (4.8-10.8)
[2022-10-11 05:40] LABS: ALBUMIN 2.9 g/dL (3.4-4.8); CALCIUM 8.8 mg/dL (8.4-11.0); CREATININE 1.22 mg/dL (0.55-1.30); PHOSPHORUS 2.9 mg/dL (2.7-4.5); TOTAL BILIRUBIN 0.6 mg/dL (0.0-1.0)
[2022-10-11] MEDS: NORMAL SALINE 5 ML DISP.SYRIN IVF SCH ×3 (06:15→21:37)
[2022-10-11] MEDS ORDERED: DOCUSATE SODIUM 100 MG CAPSULE PO SCH (09:00)
[2022-10-11] MEDS: MULTIVITAMINS TAB 1 TABLET PO SCH (09:13)
[2022-10-11] MEDS: DOCUSATE SODIUM 100 MG CAPSULE PO SCH ×2 (09:14→21:08)
[2022-10-11] MEDS: predniSONE 5 MG TABLET PO SCH (09:15)
[2022-10-11] MEDS: CITALOPRAM HYDROBROMIDE 20 MG TABLET PO SCH ×2 (09:16→21:08)
[2022-10-11] MEDS: LOSARTAN POTASSIUM 50 MG TABLET (COZAAR) PO SCH ×2 (09:16→21:16)
[2022-10-11] MEDS: FAMOTIDINE 20 MG TABLET PO SCH (09:19)
[2022-10-11] MEDS: APIXABAN 2.5 MG TABLET PO SCH ×2 (09:23→21:06)
[2022-10-11] MEDS: amLODIPine BESYLATE 10 MG TABLET PO SCH (09:23)
[2022-10-11] MEDS: PROPAFENONE 325 MG PO SCH (09:24)
[2022-10-11] MEDS: TACROLIMUS ANHYDROUS 1 MG CAPSULE (PROGRAF) PO SCH ×2 (09:25→21:08)
[2022-10-11] MEDS: mycophenolate mofetiL 250 MG CAPSULE PO SCH ×2 (09:26→21:06)
[2022-10-11] MEDS: CEFEPIME 2 GM in D5W 100 ML IV SCH ×2 (09:31→21:10)
[2022-10-11] MEDS: hydrALAZINE HCL 25 MG TABLET PO SCH ×2 (09:32→21:07)
[2022-10-11] MEDS: AZITHROMYCIN 500 MG in NS 250 ML IV SCH (10:56)
[2022-10-11] MEDS ORDERED: PROPAFENONE HCL 150 MG TABLET PO ONE (13:30)
[2022-10-11] MEDS: INSULIN REGULAR, HUMAN 100 UNITS/ML, 3 ML VIAL (humuLIN R) SUBCUT PRN ×2 (17:36→21:12)
[2022-10-11] MEDS ORDERED: PATIENT'S OWN TABLET PO SCH (21:00)
[2022-10-11] MEDS: ATORVASTATIN 20 MG TABLET PO SCH (21:06)
[2022-10-11] MEDS: TAMSULOSIN HCL 0.4 MG CAP PO SCH (21:07)
[2022-10-11] MEDS: PROPAFENONE HCL 150 MG TABLET PO SCH (21:09)
[2022-10-11] MEDS: INSULIN GLARGINE 100 UNITS/ML, 10 ML VIAL SUBCUT SCH (21:11)
[2022-10-12] VITALS (11 sets, daily range): BP systolic 143–177; PULSE 71–91; RESP 18; TEMP 97.2–98.6; O2SAT 92–98
[2022-10-12] MEDS: ALBUTEROL SULFATE 0.083% 2.5 MG/3 ML VIAL.NEB INH SCH ×6 (03:00→23:00)
[2022-10-12] MEDS: IPRATROPIUM BROM 0.5 MG/2.5 ML VIAL.NEB (ATROVENT) INH SCH ×6 (03:00→23:00)
[2022-10-12 05:18] LABS: BASOPHILS % (AUTO) 0.3 % (0.0-2.0); EOSINOPHILS # (AUTO) 0.2 K/uL (0.0-0.4); EOSINOPHILS % (AUTO) 2.3 % (0.0-4.0); HEMATOCRIT 34.4 % (36-54); HEMOGLOBIN 11.6 g/dL (14.0-18.0); LYMPHOCYTES % (AUTO) 14.1 % (20.5-51.5); MEAN CORPUSCULAR HEMOGLOBIN 31 pg (27-31); MEAN CORPUSCULAR HGB CONC 34 % (32-36); MEAN CORPUSCULAR VOLUME 92 fL (79.0-98.0); MONOCYTES # (AUTO) 0.5 K/uL (0.0-1.0); MONOCYTES % (AUTO) 7.6 % (1.7-9.3); NEUTROPHILS # (AUTO) 5.2 K/uL (1.8-7.7); NEUTROPHILS % (AUTO) 75.7 % (40.0-70.0); PLATELET COUNT (AUTO) 294 K/uL (130-430); RED BLOOD CELL COUNT(AUTO) 3.76 MIL/uL (4.2-6.2); RED CELL DISTRIBUTION WIDTH 14.3 % (9.0-15.0); WHITE BLOOD COUNT (AUTO) 6.9 K/uL (4.8-10.8)
[2022-10-12 05:27] LABS: ERYTHROCYTE SEDIMENTATION RATE 90 MM/HR (0-15)
[2022-10-12 05:34] LABS: CALCIUM 8.7 mg/dL (8.4-11.0); CREATININE 1.07 mg/dL (0.55-1.30); POTASSIUM 3.7 mmol/L (3.5-5.1)
[2022-10-12] MEDS: NORMAL SALINE 5 ML DISP.SYRIN IVF SCH ×3 (06:33→22:14)
[2022-10-12 07:06] LABS: CMV, IgG <0.60 U/mL (0.00-0.59)
[2022-10-12 08:06] LABS: CMV, IgM <30.0 AU/mL (0.0-29.9)
[2022-10-12] MEDS: LOSARTAN POTASSIUM 50 MG TABLET (COZAAR) PO SCH ×2 (08:19→21:52)
[2022-10-12] MEDS: hydrALAZINE HCL 25 MG TABLET PO SCH ×2 (08:19→21:54)
[2022-10-12] MEDS: TACROLIMUS ANHYDROUS 1 MG CAPSULE (PROGRAF) PO SCH ×2 (08:20→21:55)
[2022-10-12] MEDS: mycophenolate mofetiL 250 MG CAPSULE PO SCH (08:20)
[2022-10-12] MEDS: amLODIPine BESYLATE 10 MG TABLET PO SCH (08:20)
[2022-10-12] MEDS: PROPAFENONE HCL 150 MG TABLET PO SCH ×2 (08:21→21:52)
[2022-10-12] MEDS: FAMOTIDINE 20 MG TABLET PO SCH (08:21)
[2022-10-12] MEDS: DOCUSATE SODIUM 100 MG CAPSULE PO SCH ×2 (08:22→21:50)
[2022-10-12] MEDS: predniSONE 5 MG TABLET PO SCH (08:22)
[2022-10-12] MEDS: CITALOPRAM HYDROBROMIDE 20 MG TABLET PO SCH ×2 (08:22→21:51)
[2022-10-12] MEDS: MULTIVITAMINS TAB 1 TABLET PO SCH (08:22)
[2022-10-12] MEDS: APIXABAN 2.5 MG TABLET PO SCH ×2 (08:23→21:50)
[2022-10-12] MEDS: CEFEPIME 2 GM in D5W 100 ML IV SCH ×2 (08:26→21:02)
[2022-10-12] MEDS: AZITHROMYCIN 500 MG in NS 250 ML IV SCH (09:25)
[2022-10-12] MEDS: INSULIN REGULAR, HUMAN 100 UNITS/ML, 3 ML VIAL (humuLIN R) SUBCUT PRN ×3 (11:27→21:47)
[2022-10-12] MEDS ORDERED: METOPROLOL SUCCINATE 50 MG TAB.SR.24H (TOPROL XL) PO ONE (15:45)
[2022-10-12] MEDS: INSULIN GLARGINE 100 UNITS/ML, 10 ML VIAL SUBCUT SCH (21:48)
[2022-10-12] MEDS: TAMSULOSIN HCL 0.4 MG CAP PO SCH (21:52)
[2022-10-12] MEDS: ATORVASTATIN 20 MG TABLET PO SCH (21:53)
[2022-10-13] VITALS (9 sets, daily range): BP systolic 138–166; PULSE 60–72; RESP 16–18; TEMP 97–98.3; O2SAT 92–98
[2022-10-13] MEDS: ALBUTEROL SULFATE 0.083% 2.5 MG/3 ML VIAL.NEB INH SCH ×6 (03:00→23:00)
[2022-10-13] MEDS: IPRATROPIUM BROM 0.5 MG/2.5 ML VIAL.NEB (ATROVENT) INH SCH ×6 (03:00→23:00)
[2022-10-13 06:02] LABS: BASOPHILS % (AUTO) 0.4 % (0.0-2.0); EOSINOPHILS # (AUTO) 0.2 K/uL (0.0-0.4); EOSINOPHILS % (AUTO) 3.5 % (0.0-4.0); HEMATOCRIT 33.7 % (36-54); HEMOGLOBIN 11.3 g/dL (14.0-18.0); LYMPHOCYTES # (AUTO) 1.2 K/uL (1.0-5.5); LYMPHOCYTES % (AUTO) 20.5 % (20.5-51.5); MEAN CORPUSCULAR HEMOGLOBIN 31 pg (27-31); MEAN CORPUSCULAR HGB CONC 34 % (32-36); MEAN CORPUSCULAR VOLUME 92 fL (79.0-98.0); MONOCYTES # (AUTO) 0.5 K/uL (0.0-1.0); MONOCYTES % (AUTO) 9.2 % (1.7-9.3); NEUTROPHILS # (AUTO) 3.9 K/uL (1.8-7.7); NEUTROPHILS % (AUTO) 66.4 % (40.0-70.0); PLATELET COUNT (AUTO) 317 K/uL (130-430); RED BLOOD CELL COUNT(AUTO) 3.68 MIL/uL (4.2-6.2); RED CELL DISTRIBUTION WIDTH 14.3 % (9.0-15.0); WHITE BLOOD COUNT (AUTO) 5.9 K/uL (4.8-10.8)
[2022-10-13] MEDS: NORMAL SALINE 5 ML DISP.SYRIN IVF SCH ×3 (06:20→21:17)
[2022-10-13 06:25] LABS: ERYTHROCYTE SEDIMENTATION RATE 46 MM/HR (0-15)
[2022-10-13 06:36] LABS: ALBUMIN 2.7 g/dL (3.4-4.8); CALCIUM 8.7 mg/dL (8.4-11.0); CREATININE 1.06 mg/dL (0.55-1.30); POTASSIUM 3.8 mmol/L (3.5-5.1); TOTAL BILIRUBIN 0.3 mg/dL (0.0-1.0)
[2022-10-13] MEDS: CEFEPIME 2 GM in D5W 100 ML IV SCH ×2 (09:06→21:55)
[2022-10-13] MEDS: MULTIVITAMINS TAB 1 TABLET PO SCH (09:06)
[2022-10-13] MEDS: PROPAFENONE HCL 150 MG TABLET PO SCH ×2 (09:07→21:00)
[2022-10-13] MEDS: FAMOTIDINE 20 MG TABLET PO SCH (09:07)
[2022-10-13] MEDS: predniSONE 5 MG TABLET PO SCH (09:08)
[2022-10-13] MEDS: CITALOPRAM HYDROBROMIDE 20 MG TABLET PO SCH ×2 (09:08→20:58)
[2022-10-13] MEDS: LOSARTAN POTASSIUM 50 MG TABLET (COZAAR) PO SCH ×2 (09:08→20:58)
[2022-10-13] MEDS: METOPROLOL SUCCINATE 50 MG TAB.SR.24H (TOPROL XL) PO SCH (09:09)
[2022-10-13] MEDS: DOCUSATE SODIUM 100 MG CAPSULE PO SCH ×2 (09:09→20:58)
[2022-10-13] MEDS: amLODIPine BESYLATE 10 MG TABLET PO SCH (09:09)
[2022-10-13] MEDS: hydrALAZINE HCL 25 MG TABLET PO SCH ×2 (09:10→21:00)
[2022-10-13] MEDS: TACROLIMUS ANHYDROUS 1 MG CAPSULE (PROGRAF) PO SCH ×2 (09:11→21:16)
[2022-10-13] MEDS: APIXABAN 2.5 MG TABLET PO SCH ×2 (09:13→21:00)
[2022-10-13] MEDS: AZITHROMYCIN 500 MG in NS 250 ML IV SCH (10:56)
[2022-10-13] MEDS: INSULIN REGULAR, HUMAN 100 UNITS/ML, 3 ML VIAL (humuLIN R) SUBCUT PRN ×3 (12:48→21:14)
[2022-10-13] MEDS: TAMSULOSIN HCL 0.4 MG CAP PO SCH (20:58)
[2022-10-13] MEDS: ATORVASTATIN 20 MG TABLET PO SCH (20:59)
[2022-10-13] MEDS: INSULIN GLARGINE 100 UNITS/ML, 10 ML VIAL SUBCUT SCH (21:00)
[2022-10-14] VITALS (9 sets, daily range): BP systolic 156–184; PULSE 60–68; RESP 16–18; TEMP 97.9–98.7; O2SAT 94–97
[2022-10-14] MEDS: ALBUTEROL SULFATE 0.083% 2.5 MG/3 ML VIAL.NEB INH SCH ×6 (03:32→23:00)
[2022-10-14] MEDS: IPRATROPIUM BROM 0.5 MG/2.5 ML VIAL.NEB (ATROVENT) INH SCH ×6 (03:33→23:00)
[2022-10-14 05:12] LABS: BASOPHILS % (AUTO) 0.4 % (0.0-2.0); EOSINOPHILS # (AUTO) 0.2 K/uL (0.0-0.4); EOSINOPHILS % (AUTO) 3.4 % (0.0-4.0); HEMATOCRIT 33.7 % (36-54); HEMOGLOBIN 11.5 g/dL (14.0-18.0); LYMPHOCYTES # (AUTO) 1.5 K/uL (1.0-5.5); LYMPHOCYTES % (AUTO) 28.2 % (20.5-51.5); MEAN CORPUSCULAR HEMOGLOBIN 31 pg (27-31); MEAN CORPUSCULAR HGB CONC 34 % (32-36); MEAN CORPUSCULAR VOLUME 91 fL (79.0-98.0); MONOCYTES # (AUTO) 0.5 K/uL (0.0-1.0); MONOCYTES % (AUTO) 10.2 % (1.7-9.3); NEUTROPHILS # (AUTO) 3.1 K/uL (1.8-7.7); NEUTROPHILS % (AUTO) 57.8 % (40.0-70.0); PLATELET COUNT (AUTO) 325 K/uL (130-430); RED CELL DISTRIBUTION WIDTH 14.1 % (9.0-15.0); WHITE BLOOD COUNT (AUTO) 5.4 K/uL (4.8-10.8)
[2022-10-14 05:31] LABS: ALBUMIN 2.8 g/dL (3.4-4.8); CREATININE 1.33 mg/dL (0.55-1.30); TOTAL BILIRUBIN 0.3 mg/dL (0.0-1.0); TOTAL PROTEIN, SERUM 8.2 g/dL (6.4-8.3)
[2022-10-14 05:55] LABS: ERYTHROCYTE SEDIMENTATION RATE 67 MM/HR (0-15)
[2022-10-14] MEDS: NORMAL SALINE 5 ML DISP.SYRIN IVF SCH ×3 (06:26→21:39)
[2022-10-14] MEDS: predniSONE 5 MG TABLET PO SCH (08:28)
[2022-10-14] MEDS: CEFEPIME 2 GM in D5W 100 ML IV SCH (08:28)
[2022-10-14] MEDS: hydrALAZINE HCL 25 MG TABLET PO SCH ×2 (08:29→21:30)
[2022-10-14] MEDS: METOPROLOL SUCCINATE 50 MG TAB.SR.24H (TOPROL XL) PO SCH (08:30)
[2022-10-14] MEDS: LOSARTAN POTASSIUM 50 MG TABLET (COZAAR) PO SCH ×2 (08:30→21:29)
[2022-10-14] MEDS: amLODIPine BESYLATE 10 MG TABLET PO SCH (08:31)
[2022-10-14] MEDS: PROPAFENONE HCL 150 MG TABLET PO SCH ×2 (08:32→21:29)
[2022-10-14] MEDS: TACROLIMUS ANHYDROUS 1 MG CAPSULE (PROGRAF) PO SCH ×2 (08:33→21:31)
[2022-10-14] MEDS: CITALOPRAM HYDROBROMIDE 20 MG TABLET PO SCH ×2 (09:00→21:29)
[2022-10-14] MEDS: FAMOTIDINE 20 MG TABLET PO SCH (09:00)
[2022-10-14] MEDS: MULTIVITAMINS TAB 1 TABLET PO SCH (09:00)
[2022-10-14] MEDS: DOCUSATE SODIUM 100 MG CAPSULE PO SCH ×2 (09:00→21:30)
[2022-10-14] MEDS: APIXABAN 2.5 MG TABLET PO SCH ×2 (09:00→21:34)
[2022-10-14] MEDS ORDERED: fentaNYL CITRATE/PF 100 MCG/2 ML AMP ONE (10:02)
[2022-10-14] MEDS ORDERED: MIDAZOLAM HCL 5 MG/5 ML VIAL ONE (10:02)
[2022-10-14 10:06] LABS: ANTI NUCLEAR AB WITH REFLEX Negative (Negative)
[2022-10-14] MEDS ORDERED: LIDOCAINE MPF 2% 20 MG/1 ML, 5 ML VIAL INH ONE (10:47)
[2022-10-14] MEDS ORDERED: LIDOCAINE 2% JELLY UROJECT 10 ML MM ONE (10:47)
[2022-10-14] MEDS ORDERED: BENZOCAINE 20% 0.5mL UD SPRAY MM ONE (10:52)
[2022-10-14] MEDS ORDERED: ALBUMIN HUMAN 25% 50 ML IV ONE (12:00)
[2022-10-14] MEDS: AZITHROMYCIN 500 MG in NS 250 ML IV SCH (12:02)
[2022-10-14] MEDS: MEROPENEM 500 MG in NS 50 ML IV SCH ×2 (14:53→21:38)
[2022-10-14] MEDS: INSULIN REGULAR, HUMAN 100 UNITS/ML, 3 ML VIAL (humuLIN R) SUBCUT PRN ×2 (17:34→21:37)
[2022-10-14 19:06] LABS: MYCOPLASMA PNEUMONIAE IgM <770 U/mL (0-769)
[2022-10-14] MEDS: TAMSULOSIN HCL 0.4 MG CAP PO SCH (21:27)
[2022-10-14] MEDS: ATORVASTATIN 20 MG TABLET PO SCH (21:30)
[2022-10-14] MEDS: INSULIN GLARGINE 100 UNITS/ML, 10 ML VIAL SUBCUT SCH (21:35)
[2022-10-15] MEDS: IPRATROPIUM BROM 0.5 MG/2.5 ML VIAL.NEB (ATROVENT) INH SCH ×6 (03:00→23:00)
[2022-10-15] MEDS: ALBUTEROL SULFATE 0.083% 2.5 MG/3 ML VIAL.NEB INH SCH ×6 (03:00→23:00)
[2022-10-15 03:07] LABS: HEPATITIS B CORE AB, TOTAL Negative (Negative); HEPATITIS B SURFACE AG Negative (Negative); HEPATITIS C VIRUS AB Non Reactive (Non Reactive)
[2022-10-15 04:55] LABS: ERYTHROCYTE SEDIMENTATION RATE 37 MM/HR (0-15)
[2022-10-15 05:10] LABS: BASOPHILS % (AUTO) 0.4 % (0.0-2.0); EOSINOPHILS # (AUTO) 0.2 K/uL (0.0-0.4); EOSINOPHILS % (AUTO) 3.2 % (0.0-4.0); HEMATOCRIT 32.2 % (36-54); LYMPHOCYTES # (AUTO) 1.6 K/uL (1.0-5.5); LYMPHOCYTES % (AUTO) 22.3 % (20.5-51.5); MEAN CORPUSCULAR HEMOGLOBIN 31 pg (27-31); MEAN CORPUSCULAR HGB CONC 34 % (32-36); MEAN CORPUSCULAR VOLUME 91 fL (79.0-98.0); MONOCYTES # (AUTO) 0.6 K/uL (0.0-1.0); MONOCYTES % (AUTO) 8.4 % (1.7-9.3); NEUTROPHILS # (AUTO) 4.6 K/uL (1.8-7.7); NEUTROPHILS % (AUTO) 65.7 % (40.0-70.0); PLATELET COUNT (AUTO) 353 K/uL (130-430); RED BLOOD CELL COUNT(AUTO) 3.54 MIL/uL (4.2-6.2); RED CELL DISTRIBUTION WIDTH 13.7 % (9.0-15.0)
[2022-10-15 05:23] LABS: ALBUMIN 2.9 g/dL (3.4-4.8); CALCIUM 8.9 mg/dL (8.4-11.0); CREATININE 1.15 mg/dL (0.55-1.30); POTASSIUM 4.1 mmol/L (3.5-5.1); TOTAL BILIRUBIN 0.4 mg/dL (0.0-1.0); TOTAL PROTEIN, SERUM 8.1 g/dL (6.4-8.3)
[2022-10-15 06:06] LABS: FERRITIN 875 ng/mL (30-400)
[2022-10-15] MEDS: MEROPENEM 500 MG in NS 50 ML IV SCH ×3 (06:57→22:15)
[2022-10-15] MEDS: NORMAL SALINE 5 ML DISP.SYRIN IVF SCH ×3 (06:57→22:16)
[2022-10-15 08:00] VITALS: BP_SYST 138; PULSE 62; RESP 18; TEMP 96.1; O2SAT 95
[2022-10-15] MEDS: CITALOPRAM HYDROBROMIDE 20 MG TABLET PO SCH ×2 (09:04→21:18)
[2022-10-15] MEDS: APIXABAN 2.5 MG TABLET PO SCH ×2 (09:04→21:17)
[2022-10-15] MEDS: DOCUSATE SODIUM 100 MG CAPSULE PO SCH ×2 (09:04→21:18)
[2022-10-15] MEDS: MULTIVITAMINS TAB 1 TABLET PO SCH (09:04)
[2022-10-15] MEDS: amLODIPine BESYLATE 10 MG TABLET PO SCH (09:05)
[2022-10-15] MEDS: LOSARTAN POTASSIUM 50 MG TABLET (COZAAR) PO SCH ×2 (09:05→21:21)
[2022-10-15] MEDS: predniSONE 5 MG TABLET PO SCH (09:07)
[2022-10-15] MEDS: PROPAFENONE HCL 150 MG TABLET PO SCH ×2 (09:07→21:26)
[2022-10-15] MEDS: FAMOTIDINE 20 MG TABLET PO SCH (09:07)
[2022-10-15] MEDS: hydrALAZINE HCL 25 MG TABLET PO SCH ×2 (09:08→21:16)
[2022-10-15] MEDS: METOPROLOL SUCCINATE 50 MG TAB.SR.24H (TOPROL XL) PO SCH (09:08)
[2022-10-15 09:10] VITALS: O2SAT 95
[2022-10-15] MEDS: TACROLIMUS ANHYDROUS 1 MG CAPSULE (PROGRAF) PO SCH ×2 (09:13→21:27)
[2022-10-15] MEDS: AZITHROMYCIN 500 MG in NS 250 ML IV SCH (12:08)
[2022-10-15 12:10] VITALS: O2SAT 96
[2022-10-15] MEDS: INSULIN REGULAR, HUMAN 100 UNITS/ML, 3 ML VIAL (humuLIN R) SUBCUT PRN ×3 (12:13→21:29)
[2022-10-15 17:25] VITALS: BP_SYST 153; PULSE 54; RESP 18; TEMP 98.1; O2SAT 95
[2022-10-15 18:06] LABS: QUANTIFERON TB GOLD Negative (Negative)
[2022-10-15 19:30] VITALS: O2SAT 96
[2022-10-15 20:00] VITALS: BP_SYST 166; PULSE 62; RESP 18; TEMP 98.1; O2SAT 94
[2022-10-15] MEDS: TAMSULOSIN HCL 0.4 MG CAP PO SCH (21:16)
[2022-10-15] MEDS: ATORVASTATIN 20 MG TABLET PO SCH (21:17)
[2022-10-15] MEDS: INSULIN GLARGINE 100 UNITS/ML, 10 ML VIAL SUBCUT SCH (21:28)
[2022-10-16] VITALS (11 sets, daily range): BP systolic 139–157; PULSE 58–62; RESP 16–22; TEMP 97.8–98.8; O2SAT 92–98
[2022-10-16] MEDS: IPRATROPIUM BROM 0.5 MG/2.5 ML VIAL.NEB (ATROVENT) INH SCH ×6 (03:00→23:37)
[2022-10-16] MEDS: ALBUTEROL SULFATE 0.083% 2.5 MG/3 ML VIAL.NEB INH SCH ×6 (03:00→23:37)
[2022-10-16 06:23] LABS: ERYTHROCYTE SEDIMENTATION RATE 52 MM/HR (0-15)
[2022-10-16 06:32] LABS: BASOPHILS % (AUTO) 0.6 % (0.0-2.0); EOSINOPHILS # (AUTO) 0.3 K/uL (0.0-0.4); EOSINOPHILS % (AUTO) 3.7 % (0.0-4.0); HEMATOCRIT 32.1 % (36-54); LYMPHOCYTES # (AUTO) 1.7 K/uL (1.0-5.5); LYMPHOCYTES % (AUTO) 23.2 % (20.5-51.5); MEAN CORPUSCULAR HEMOGLOBIN 31 pg (27-31); MEAN CORPUSCULAR HGB CONC 34 % (32-36); MEAN CORPUSCULAR VOLUME 91 fL (79.0-98.0); MONOCYTES # (AUTO) 0.5 K/uL (0.0-1.0); MONOCYTES % (AUTO) 7.5 % (1.7-9.3); NEUTROPHILS # (AUTO) 4.7 K/uL (1.8-7.7); PLATELET COUNT (AUTO) 344 K/uL (130-430); RED BLOOD CELL COUNT(AUTO) 3.53 MIL/uL (4.2-6.2); RED CELL DISTRIBUTION WIDTH 14.1 % (9.0-15.0); WHITE BLOOD COUNT (AUTO) 7.2 K/uL (4.8-10.8)
[2022-10-16] MEDS: NORMAL SALINE 5 ML DISP.SYRIN IVF SCH ×3 (06:45→21:41)
[2022-10-16] MEDS: MEROPENEM 500 MG in NS 50 ML IV SCH ×3 (06:53→22:05)
[2022-10-16 06:58] LABS: CALCIUM 8.8 mg/dL (8.4-11.0); POTASSIUM 3.9 mmol/L (3.5-5.1)
[2022-10-16 06:59] LABS: ALBUMIN 2.7 g/dL (3.4-4.8); CREATININE 1.19 mg/dL (0.55-1.30); PHOSPHORUS 3.2 mg/dL (2.7-4.5); TOTAL BILIRUBIN 0.3 mg/dL (0.0-1.0); TOTAL PROTEIN, SERUM 7.9 g/dL (6.4-8.3)
[2022-10-16] MEDS: PROPAFENONE HCL 150 MG TABLET PO SCH ×2 (09:21→21:20)
[2022-10-16] MEDS: TACROLIMUS ANHYDROUS 1 MG CAPSULE (PROGRAF) PO SCH ×2 (09:21→21:20)
[2022-10-16] MEDS: hydrALAZINE HCL 25 MG TABLET PO SCH ×2 (09:22→21:21)
[2022-10-16] MEDS: METOPROLOL SUCCINATE 50 MG TAB.SR.24H (TOPROL XL) PO SCH (09:22)
[2022-10-16] MEDS: amLODIPine BESYLATE 10 MG TABLET PO SCH (09:25)
[2022-10-16] MEDS: APIXABAN 2.5 MG TABLET PO SCH ×2 (09:25→21:17)
[2022-10-16] MEDS: predniSONE 5 MG TABLET PO SCH (09:26)
[2022-10-16] MEDS: LOSARTAN POTASSIUM 50 MG TABLET (COZAAR) PO SCH ×2 (09:26→21:16)
[2022-10-16] MEDS: MULTIVITAMINS TAB 1 TABLET PO SCH (09:26)
[2022-10-16] MEDS: DOCUSATE SODIUM 100 MG CAPSULE PO SCH ×2 (09:26→21:22)
[2022-10-16] MEDS: FAMOTIDINE 20 MG TABLET PO SCH (09:27)
[2022-10-16] MEDS: CITALOPRAM HYDROBROMIDE 20 MG TABLET PO SCH ×2 (09:28→21:22)
[2022-10-16 12:06] LABS: ANTI-SMOOTH MUSCLE AB 5 Units (0-19)
[2022-10-16] MEDS: INSULIN REGULAR, HUMAN 100 UNITS/ML, 3 ML VIAL (humuLIN R) SUBCUT PRN ×2 (17:52→21:24)
[2022-10-16] MEDS: ATORVASTATIN 20 MG TABLET PO SCH (21:22)
[2022-10-16] MEDS: TAMSULOSIN HCL 0.4 MG CAP PO SCH (21:22)
[2022-10-16] MEDS: INSULIN GLARGINE 100 UNITS/ML, 10 ML VIAL SUBCUT SCH (21:25)
[2022-10-17] VITALS (8 sets, daily range): BP systolic 147–164; PULSE 57–59; RESP 17–18; TEMP 97.5–98.1; O2SAT 93–97
[2022-10-17] MEDS: IPRATROPIUM BROM 0.5 MG/2.5 ML VIAL.NEB (ATROVENT) INH SCH ×4 (03:00→15:38)
[2022-10-17] MEDS: ALBUTEROL SULFATE 0.083% 2.5 MG/3 ML VIAL.NEB INH SCH ×4 (03:00→15:38)
[2022-10-17 05:05] LABS: ERYTHROCYTE SEDIMENTATION RATE 65 MM/HR (0-15)
[2022-10-17 05:41] LABS: BASOPHILS % (AUTO) 0.4 % (0.0-2.0); EOSINOPHILS # (AUTO) 0.2 K/uL (0.0-0.4); EOSINOPHILS % (AUTO) 3.3 % (0.0-4.0); HEMATOCRIT 32.3 % (36-54); LYMPHOCYTES # (AUTO) 2.1 K/uL (1.0-5.5); LYMPHOCYTES % (AUTO) 31.1 % (20.5-51.5); MEAN CORPUSCULAR HEMOGLOBIN 31 pg (27-31); MEAN CORPUSCULAR HGB CONC 34 % (32-36); MEAN CORPUSCULAR VOLUME 91 fL (79.0-98.0); MONOCYTES # (AUTO) 0.5 K/uL (0.0-1.0); MONOCYTES % (AUTO) 6.7 % (1.7-9.3); NEUTROPHILS # (AUTO) 3.9 K/uL (1.8-7.7); NEUTROPHILS % (AUTO) 58.5 % (40.0-70.0); PLATELET COUNT (AUTO) 391 K/uL (130-430); RED BLOOD CELL COUNT(AUTO) 3.55 MIL/uL (4.2-6.2); RED CELL DISTRIBUTION WIDTH 13.7 % (9.0-15.0); WHITE BLOOD COUNT (AUTO) 6.7 K/uL (4.8-10.8)
[2022-10-17 05:42] LABS: CALCIUM 8.6 mg/dL (8.4-11.0); CREATININE 1.2 mg/dL (0.55-1.30); POTASSIUM 3.7 mmol/L (3.5-5.1)
[2022-10-17] MEDS: NORMAL SALINE 5 ML DISP.SYRIN IVF SCH ×2 (06:21→13:43)
[2022-10-17] MEDS: MEROPENEM 500 MG in NS 50 ML IV SCH ×2 (06:48→13:43)
[2022-10-17 10:07] LABS: LIVER-KIDNEY MICROSOMAL AB 0.9 Units (0.0-20.0)
[2022-10-17] MEDS: MULTIVITAMINS TAB 1 TABLET PO SCH (10:14)
[2022-10-17] MEDS: CITALOPRAM HYDROBROMIDE 20 MG TABLET PO SCH (10:14)
[2022-10-17] MEDS: FAMOTIDINE 20 MG TABLET PO SCH (10:15)
[2022-10-17] MEDS: DOCUSATE SODIUM 100 MG CAPSULE PO SCH (10:15)
[2022-10-17] MEDS: amLODIPine BESYLATE 10 MG TABLET PO SCH (10:15)
[2022-10-17] MEDS: APIXABAN 2.5 MG TABLET PO SCH (10:16)
[2022-10-17] MEDS: LOSARTAN POTASSIUM 50 MG TABLET (COZAAR) PO SCH (10:17)
[2022-10-17] MEDS: predniSONE 5 MG TABLET PO SCH (10:17)
[2022-10-17] MEDS: METOPROLOL SUCCINATE 50 MG TAB.SR.24H (TOPROL XL) PO SCH (10:17)
[2022-10-17] MEDS: PROPAFENONE HCL 150 MG TABLET PO SCH (10:18)
[2022-10-17] MEDS: hydrALAZINE HCL 25 MG TABLET PO SCH (10:19)
[2022-10-17] MEDS: TACROLIMUS ANHYDROUS 1 MG CAPSULE (PROGRAF) PO SCH (10:19)
[2022-10-17] MEDS: INSULIN REGULAR, HUMAN 100 UNITS/ML, 3 ML VIAL (humuLIN R) SUBCUT PRN (11:38)
[2022-10-17 16:07] LABS: COCCIDIOIDES AB IGG 0.1 IV (<=0.9)
[2022-10-17] MEDS ORDERED: LEVO250T73 PO (16:11)
[2022-10-17] MEDS ORDERED: SULF1TAB48 PO (16:11)
== END 2022-10-17 17:49 | disposition home or self-care (01) | DRG 871 ==
LOC: SED 14:03 → STU 17:02 → SMU 10-15 23:14
PROVIDERS: ADMIT Preventive Medicine Preventive Medicine/Occupational Environmental Medicine; ATTEND Preventive Medicine Preventive Medicine/Occupational Environmental Medicine
PROC: 0B9J8ZX Drainage of Left Lower Lung Lobe, Via Natural or Artificial Opening Endoscopic, Diagnostic (ICD-10-PCS; principal; 2022-10-15)
PROC: 0B9D8ZX Drainage of Right Middle Lung Lobe, Via Natural or Artificial Opening Endoscopic, Diagnostic (ICD-10-PCS; 2022-10-15)
PROC: 0B9H8ZX Drainage of Lung Lingula, Via Natural or Artificial Opening Endoscopic, Diagnostic (ICD-10-PCS; 2022-10-15)
PROC: 0B9F8ZX Drainage of Right Lower Lung Lobe, Via Natural or Artificial Opening Endoscopic, Diagnostic (ICD-10-PCS; 2022-10-15)
DX: A41.9 Sepsis, unspecified organism (principal); J18.9 Pneumonia, unspecified organism; J96.01 Acute respiratory failure with hypoxia; D84.821 Immunodeficiency due to drugs; Z94.0 Kidney transplant status; N17.9 Acute kidney failure, unspecified; T86.19 Other complication of kidney transplant; E11.65 Type 2 diabetes mellitus with hyperglycemia; E78.5 Hyperlipidemia, unspecified; F41.9 Anxiety disorder, unspecified; F32.A Depression, unspecified; E88.09 Other disorders of plasma-protein metabolism, not elsewhere classified; I35.0 Nonrheumatic aortic (valve) stenosis; I48.91 Unspecified atrial fibrillation; K21.9 Gastro-esophageal reflux disease without esophagitis; N40.0 Benign prostatic hyperplasia without lower urinary tract symptoms; Y83.0 Surgical operation with transplant of whole organ as the cause of abnormal reaction of the patient, or of later complication, without mention of misadventure at the time of the procedure; K59.00 Constipation, unspecified; E66.9 Obesity, unspecified; Z20.822 Contact with and (suspected) exposure to COVID-19; D64.9 Anemia, unspecified; I12.9 Hypertensive chronic kidney disease with stage 1 through stage 4 chronic kidney disease, or unspecified chronic kidney disease; E11.22 Type 2 diabetes mellitus with diabetic chronic kidney disease; N18.9 Chronic kidney disease, unspecified; Z79.624 Long term (current) use of inhibitors of nucleotide synthesis; Z88.6 Allergy status to analgesic agent; Z88.8 Allergy status to other drugs, medicaments and biological substances; Z79.01 Long term (current) use of anticoagulants; Z79.899 Other long term (current) drug therapy; Z79.4 Long term (current) use of insulin; Y92.89 Other specified places as the place of occurrence of the external cause; Z68.26 Body mass index [BMI] 26.0-26.9, adult
CPT/HCPCS: 31624; 31625; 36415; 71045; 71250-TC; 76376; 76700-TC; 80048; 80053; 81000; 82728; 82962; 83516; 83605; 83615; 83690; 83735; 83880; 84100; 84484; 85025; 85610-TC; 85651-TC; 85730-TC; 86038; 86376; 86480; 86635; 86644; 86645; 86704; 86706; 86708; 86738; 86803; 87040; 87070; 87070-TC; 87081; 87086; 87101; 87116; 87205-TC; 87305; 87340; 87497; 88108; 93005; 93306; 94010; 94640; 94760; 96361; 96365; 97116-GP; 97163-GP; 99285; G0378; J0456; J0692; J1815; J2185; J2250; J3010; J7040; J7050; J7060; J7507; J7512; J7517; P9046